=== PATIENT | female | born 1950 | race Caucasian/White ===

== ENCOUNTER 2024-10-12 14:34 | Emergency (ER) | payer BC, MEDICARE ==
[~2024-10-12] VITALS: Ht 157.5 cm; Wt 88.5 kg
[2024-10-12] MEDS ORDERED: SEMA1PEN SQ (15:09)
[2024-10-12] MEDS ORDERED: FAMO40TA7 PO (15:09)
[2024-10-12] MEDS ORDERED: LISI2.5T14 PO (15:09)
[2024-10-12] MEDS ORDERED: CHLO25TA2 PO (15:09)
[2024-10-12] MEDS ORDERED: PANT40TA49 PO (15:09)
[2024-10-12] MEDS ORDERED: GABA600T12 PO (15:09)
[2024-10-12] MEDS ORDERED: BRIN8DRO RIGHTEYE (15:09)
[2024-10-12 15:18] LABS: PLATELET COUNT (AUTO) 384 K/uL (179-408); RED BLOOD CELL COUNT(AUTO) 4.49 MIL/uL (3.63-4.92); RED CELL DISTRIBUTION WIDTH 15.1 % (12.3-17.7); WHITE BLOOD COUNT (AUTO) 8.5 K/uL (3.8-11.8)
[2024-10-12 15:33] LABS: ASPARTATE AMINOTRANSFERASE 16 U/L (15-37); CREATININE 0.8 mg/dL (0.6-1.3); SODIUM SERUM 135 mmol/L (136-145); TOTAL PROTEIN, SERUM 5.9 g/dL (6.4-8.2); UREA NITROGEN, BLOOD 11 mg/dL (7-18)
[2024-10-12 17:29] VITALS: BP 124/61; TEMP 97.7; O2SAT 98
== END 2024-10-12 17:29 | disposition home or self-care (01) ==
LOC: ER 14:34
DX: R00.1 Bradycardia, unspecified (principal); R07.9 Chest pain, unspecified; I10 Essential (primary) hypertension; J45.909 Unspecified asthma, uncomplicated; K21.9 Gastro-esophageal reflux disease without esophagitis; M19.90 Unspecified osteoarthritis, unspecified site; Z79.899 Other long term (current) drug therapy; Z86.0100 Personal history of colon polyps, unspecified; Z88.2 Allergy status to sulfonamides; Z88.7 Allergy status to serum and vaccine; Z96.611 Presence of right artificial shoulder joint; Z96.653 Presence of artificial knee joint, bilateral; Z98.890 Other specified postprocedural states
CPT/HCPCS: 36415; 71045; 84484; 85025; 85730; A4606; A4663